=== PATIENT | female | born 1980 | race Caucasian/White ===

== ENCOUNTER → 2018-04-11 10:21 | Outpatient (CLI) | payer OTHER, SELFPAY ==
--- NOTE | 2018-04-11 10:25 | RAD_ITS ---
STUDY: X-RAY - RIGHT FOOT CLINICAL: Female, 38 years old. Posterior foot pain following injury. TECHNIQUE: 3 view(s) of the foot. COMPARISON: None. FINDINGS: Normal talus, calcaneus, and tarsal bones. Normal visualized subtalar, talonavicular, calcaneocuboid, tarsal and tarsometatarsal articulations. Normal metatarsi. Normal metatarsophalangeal joint of the great toe. Normal tibial and fibular sesamoid bones. Normal interphalangeal joint of the great toe. Normal phalanges of the great toe. Normal second through fifth metatarsophalangeal joints. Normal interphalangeal joints and phalanges of the lesser toes. The soft tissue structures are unremarkable. RAD/Foot min 3 Views IMPRESSION: Normal x-ray examination of the foot. Electronically Signed: Ralph Baez MD at 11:07 EDT Tel [phone], Service support ,
== END ==
PROVIDERS: Family Provider Internal Medicine; PCP Internal Medicine; Visit Provider Internal Medicine
DX: M79.671 Pain in right foot (principal)
CPT/HCPCS: 73630

== ENCOUNTER → 2018-07-14 09:12 | Outpatient (CLI) | payer OTHER, SELFPAY ==
--- NOTE | 2018-07-14 09:19 | US_ITS ---
STUDY: ABDOMINAL ULTRASOUND - RIGHT UPPER QUADRANT REASON FOR VISIT: Female, 38 years old. Pain TECHNIQUE: Ultrasound evaluation of the right upper quadrant was performed with real-time and static seo-scale imaging. # of Images: 125 TECHNICAL QUALITY: Adequate. COMPARISON: November 03, 2011 FINDINGS: Liver: The liver measures 15.5 cm. There is normal echogenicity of the liver. The bile ducts are dilated. There is hepatic color flow. The direction of portal flow is hepatopetal. There is no demonstrated mass lesion. Gallbladder: Normal distended gallbladder. The gallbladder wall measures 2 mm. There is a negative sonographic Del Cid's sign. There is no pericholecystic fluid. A nonshadowing polyp is present in the gallbladder measuring 5 x 4 x 4 mm. No shadowing gallstones are seen. Common Bile Duct (C.B.D.): The common bile duct measures 6 mm. Pancreas: Normal size of the head, body and tail of the pancreas. There is normal echogenicity of the pancreas. There is no demonstrated pancreatic mass or cyst. Right Kidney: Normal size of the right kidney. The right kidney measures 11.3 x 4.5 x 4.2 cm. Normal renal cortex. The right cortex measures 1.2 cm. There is no demonstrated renal mass or cyst. There is no right hydronephrosis. US/Abdomen Limited IMPRESSION: Small nonshadowing gallbladder polyp. No shadowing gallstones are seen. No gallbladder wall thickening. Dilated common bile duct. Electronically Signed: Cleveland Harvey MD at 7:16 EDT Tel , Service support ,
== END ==
PROVIDERS: Family Provider Internal Medicine; PCP Internal Medicine; Referring Provider Internal Medicine; Visit Provider Internal Medicine
DX: R07.89 Other chest pain (principal)
CPT/HCPCS: 76705

== ENCOUNTER 2019-08-07 11:08 | Emergency (ER) | payer OTHER, SELFPAY ==
[2019-08-07 11:09] VITALS: BP 143/101; PULSE 110; RESP 16; TEMP 36.8; O2SAT 99; BMI 24.7
--- NOTE | 2019-08-07 11:34 | EKG12_ITS ---
Test Reason : BACK Blood Pressure : / mmHG Vent. Rate : 093 BPM Atrial Rate : 093 BPM P-R Int : 156 ms QRS Dur : 076 ms QT Int : 340 ms P-R-T Axes : 000 059 015 degrees QTc Int : 422 ms Ectopic atrial rhythm Normal ECG Confirmed by TYLOR KUHN, YESSY ([id number]), makeup editor AMBROCIO KEY ([id number]) on 08/13/2019 1:06:22 PM Referred By: SARAH Confirmed By:KARLY SNIDER MD
--- NOTE | 2019-08-07 11:34 | CT_ITS ---
STUDY: CT ABDOMEN AND PELVIS WITH CONTRAST REASON FOR EXAM: Female, 39 years old. Left flank pain. RADIATION DOSAGE (If Supplied By Facility): CTDIvol = ( 10.14 ) mGy, DLP = ( 953.63 ) mGycm TECHNIQUE: Transaxial images were obtained from the dome of the diaphragm to the symphysis pubis without oral contrast. IV Isovue 370 75 was administered. Sagittal and coronal images were reconstructed. Individualized dose optimization techniques were used for this CT. COMPARISON: None. FINDINGS: Calcified granuloma in the right lower lobe. The visualized portions of the heart are within normal limits. Normal liver. Minimal degree of the central intrahepatic biliary ductal dilatation. Minimally dilated proximal portion of the common bile duct. Questionable densities within the common bile duct. There are multiple benign calcified granulomata of the spleen. Normal pancreas. Normal bilateral adrenal glands. Normal right kidney. Normal left kidney. There is a small hiatal hernia. Normal small intestine. There are scattered colonic diverticula consistent with diverticulosis. The appendix is visualized and appears normal. Normal abdominal aorta. Normal inferior vena cava. Normal retroperitoneum. Normal urinary bladder. Dominant follicle in the right ovary. Normal abdominal wall. Normal osseous structures. CT/Abdomen/Pelvis W IV Cont ONLY IMPRESSION: Minimal degree of central intrahepatic biliary ductal dilatation. Questionable densities within the common bile duct. Correlation with ultrasound of the gallbladder is recommended. Electronically Signed: Ralph Baez, at 13:19 EST , Service support ,
--- NOTE | 2019-08-07 11:34 | CT_ITS ---
STUDY: CTA CHEST REASON FOR EXAM: Female, 39 years old. Left-sided pleuritic chest pain. RADIATION DOSAGE (If Supplied By Facility): CTDIvol = ( 10.14 ) mGy, DLP = ( 953.63 ) mGycm TECHNIQUE: The examination was performed with the intravenous administration of IV Isovue 370 75. Post-processing of the angiographic images was performed, with multiplanar reformation and 3D reconstruction. Individualized dose optimization techniques were used for this CT. COMPARISON: None. FINDINGS: Normal enhancement of the main pulmonary artery and right and left pulmonary arteries. Normal enhancement of the bilateral peripheral pulmonary arteries. There is no demonstrated pulmonary embolism. Normal thoracic aorta and visualized great vessels. There is no demonstrated aortic dissection. Normal heart and pericardium. Normal mediastinum. Normal hilar regions. Normal visualized trachea and bronchi. The lungs are well expanded. Calcified granuloma in the right lower lobe. Normal pleura. Normal chest wall structures. Normal osseous structures. Calcified splenic granulomas. CT/CTA Chest W/WO Contrast IMPRESSION: No evidence of pleural embolism. Calcified granuloma in the right lower lobe. Electronically Signed: Ralph Baez, at 13:20 EST , Service support ,
--- NOTE | 2019-08-07 11:36 | ED.DCSUM_ITS ---
History of Present Illness Chief Complaint: Back Informant: Patient Onset: Hours - 1 Context: Sudden Onset - while sitting at her desk Timing: Continuous - not colicky Quality: pain Location: left mid-back Current Severity: Severe Maximum Severity: Severe Worsened by: certain movements. deep inspiration. Relieved by: remaining still, breathing easy. no help from ibuprofen. Associated Symptoms: nausea at onset, gone. a little sob. no cp, abd pain, recent injury. Narrative: Sudden onset of pain she has never had before. It is in her mid left back, it does not radiate. She had a D&C in the past but no other surgeries. Pain does not radiate anteriorly or into the groin, no urinary symptoms or problems with bowel movements lately, no recent illnesses or injuries. She states that she has no chest pain, but then states that my chest is starting to feel tight because I am feeling anxious. No recent leg pain or swelling. No history of DVT or PE. No recent long travel, hospitalization, surgery, or other reasons to be immobilized. - Past Medical History (1) Depression Status: Chronic Past Medical History - Allergies and Home Meds Allergies/Adverse Reactions: Allergies No Known Allergies Allergy (Verified 08/07/19 11:08) Primary Care Physician: Breanne Centeno DO [Primary Care Provider] - Surgical History: noncontributory - D&C only Smoking Status: Never smoker Drugs: None Review of Systems General: Denies: Chills, Fever, Sweats Eyes: Denies: Visual changes - bilaterally, Diplopia ENT: Denies: Rhinorrhea, Sore throat Cardiovascular: Reports: Chest pain - see hpi. Denies: Palpitations Respiratory: Reports: Dyspnea - a little. Denies: Cough, Dyspnea on exertion, Orthopnea Gastrointestinal: Denies: Abdominal pain, Nausea, Vomiting, Diarrhea, Melena, Hematochezia Genitourinary: Denies: Dysuria, Hematuria, Frequency Musculoskeletal: Reports: Back pain. Denies: Neck pain, Swelling, Extremity Pain Skin: Denies: Rash, Wounds Neurological: Denies: Headache, Weakness, Numbness Physical Exam Vital Signs/Narrative: Vital Signs Temp Pulse Resp BP Pulse Ox 08/07/19 11:09 98.3 F 110 H 16 143/101 H 99 Inital Vital Signs reviewed: Yes General: Well nourished, Well developed, No Acute Distress - but uncomfortable Head: Normocephalic, Atraumatic Eyes: Perrl, EOMI ENT: Moist mucous membranes, No rhinorrhea Neck: Supple, Nontender Cardiovascular: Regular rate, Regular rhythm, No murmurs, Tachycardia Respiratory: No distress, CTA bilaterally, Chest nontender Abdomen: Soft, Nontender, Nondistended, Normal bowel sounds Back: Nontender, Normal Inspection. Negative for: CVA tenderness, Spinal tenderness Extremities: Nontender, No edema. Negative for: Calf Tenderness Skin: Normal color, No rash, No Trauma Neurological: Alert, Oriented x3, Cranial nerves II-XII grossly intact, Normal Strength, Normal Sensation Psychological: Normal affect, Normal Mood, - - anxious Diagnostic/Tx/Re-eval Impressions Abdomen/Pelvis CT 08/07/19 11:34 IMPRESSION: Minimal degree of central intrahepatic biliary ductal dilatation. Questionable densities within the common bile duct. Correlation with ultrasound of the gallbladder is recommended. Electronically Signed: Ralph Nestor, at 13:19 EST , Service support , Chest CTA 08/07/19 11:34 IMPRESSION: No evidence of pleural embolism. Calcified granuloma in the right lower lobe. Electronically Signed: Ralph Nestor, at 13:20 EST , Service support , 08/07/19 11:34 CT Abd [Abdomen/Pelvis W IV Cont ONLY] [CT] Stat CTA Chest W/WO Contrast [CT] Stat Laboratory Results 08/07/19 08/07/19 08/07/19 12:05 12:10 12:10 WBC 7.2 RBC 5.35 Hgb 14.5 Hct 45.4 MCV 84.9 MCH 27.1 MCHC 31.9 L RDW Std Deviation 37.4 RDW Coeff of [place] 12.2 Plt Count 268 MPV 9.1 Immature Gran % (Auto) 0.100 Neut % (Auto) 61.7 Lymph % (Auto) 29.7 [place] % (Auto) 7.1 Eos % (Auto) 0.7 Baso % (Auto) 0.7 Absolute Neuts (auto) 4.4 Absolute Lymphs (auto) 2.12 Nucleated RBC % 0 Sodium 140 Potassium 3.6 Chloride 105 Carbon Dioxide 26.0 Anion Gap 9 BUN 11 Creatinine 0.72 Estim Creat Clear Calc 85.92 Est GFR (MDRD) Af Amer 116 Est GFR (MDRD) Non-Af 96 BUN/Creatinine Ratio 15.4 Glucose 90 Calcium 9.4 Total Bilirubin Direct Bilirubin AST ALT Alkaline Phosphatase Troponin I < 0.015 Total Protein Albumin Globulin Urine Color Straw Urine Clarity Clear Urine pH 6.5 Ur Specific [place] 1.010 Urine Protein Negative Urine Glucose (UA) Normal Urine Ketones 5 H Urine Occult Blood Negative Urine Nitrite Negative Urine Bilirubin Negative Urine Urobilinogen Normal Ur Leukocyte Esterase Negative Urine RBC 0 SEEN Urine WBC 0 SEEN Ur Squamous Epith Cells 0-5 SEEN Urine Bacteria 0 SEEN Urine Mucus 0 SEEN 08/07/19 12:10 WBC RBC Hgb Hct MCV MCH MCHC RDW Std Deviation RDW Coeff of [place] Plt Count MPV Immature Gran % (Auto) Neut % (Auto) Lymph % (Auto) Valencia % (Auto) Eos % (Auto) Baso % (Auto) Absolute Neuts (auto) Absolute Lymphs (auto) Nucleated RBC % Sodium Potassium Chloride Carbon Dioxide Anion Gap BUN Creatinine Estim Creat Clear Calc Est GFR (MDRD) Af Amer Est GFR (MDRD) Non-Af BUN/Creatinine Ratio Glucose Calcium Total Bilirubin 1.10 H Direct Bilirubin 0.27 AST 19 ALT 23 Alkaline Phosphatase 82 Troponin I Total Protein 8.5 H Albumin 4.5 Globulin 4.0 Urine Color Urine Clarity Urine pH Ur Specific [place] Urine Protein Urine Glucose (UA) Urine Ketones Urine Occult Blood Urine Nitrite Urine Bilirubin Urine Urobilinogen Ur Leukocyte Esterase Urine RBC Urine WBC Ur Squamous Epith Cells Urine Bacteria Urine Mucus - Rhythm Strip Rhythm Strip: Sinus Rhythm Rate: 93 Ectopy: None - EKG Initial EKG Interpretation: Sinus Rhythm, No Acute Injury Pattern, - - [place] normal. Normal EKG. - Medical Decision Making CT angiography of the chest shows nothing acute including pulmonary embolus. CT of the abdomen and pelvis shows nothing that explains this discomfort although some nonspecific common bile duct findings are noted as above. Patient had no abdominal discomfort, vomiting, or tenderness. Therefore I suspect this is chronic and not new. I added liver enzymes, her total bilirubin is just slightly elevated at 1.1. The only other reading that we have in the system is 0.9 and that was 2-3 years ago. The patient is feeling a lot better after Zofran and morphine with IV fluids. The rest of her blood work is all completely normal. Urinalysis is normal. No kidney stone was seen. I discussed with her doctor, Dr. Centeno, who reviewed some records and states she had a total bilirubin of 0.7 and one other reading other than the ones that we discussed, but she did have an ultrasound last year that showed a dilated common bile duct. Therefore I do not think there is anything acute going on here. Since this is a very slight abnormality I feel she can safely follow-up since she is feeling much better. She will be given a prescription for analgesics and advised to follow-up or return if worse. She is comfortable with that plan. Etiology is unknown and she did not act like this was something musculoskeletal. ED Disposition - Plan for ED Patient: Disposition: Home or Assisted Living Diagnosis: Hyperbilirubinemia, Common bile duct dilatation, Left-sided back pain Instructions: BACK PAIN (Acute or Chronic) Prescriptions: Hydrocodone Bitart/Apap 5-325 [[place] 5MG-325MG] 1 tab PO Q4H PRN PRN 2 Days #10 tab PRN Reason: Pain Prescription Printed Referrals: Breanne Centeno, [Primary Care Provider] - 3-5 Days if not improving
--- NOTE | 2019-08-07 11:38 | NURSING ---
NO OLD EKGS
[2019-08-07] MEDS: 0.9% Normal Saline 1,000 ML 999 ML IV (12:09)
[2019-08-07] MEDS: Ondansetron 4 MG/2 ML Vial IV (12:10)
[2019-08-07] MEDS: Morphine 4 MG/ML Syringe IV (12:11)
[2019-08-07 12:15] LABS: Bacteria 0 SEEN /hpf (None Seen); Mucous, Urine 0 SEEN /hpf (<or=2+); Red Blood Cells-Urine 0 SEEN /hpf (0-5); White Blood Cells 0 SEEN /hpf (0-5)
[2019-08-07 12:18] LABS: Color, Urine Straw (Yellow); Glucose, Dipstick Normal (Normal); Ketone-Dipstick 5 mg/dl (Negative); Leukocyte Esterase-Dipstick Negative /ul (Negative); Nitrite-Dipstick Negative (Negative); Occult Blood-Urine Negative /ul (Negative); Protein-Dipstick Negative (Negative); Urine Bilirubin Dipstick Negative (Negative); Urine Clarity Clear (Clear); Urine Urobilinogen Normal (Normal); Urine pH 6.5 (5.0 - 8.0)
[2019-08-07 12:18] LABS: Absolute Lymphocyte Count 2.12 X10^3/uL (0.83-4.51); Absolute Neutrophil Count 4.4 X10^3/uL (2.0-7.7); Basophil# 0.05 X10^3/uL; Basophil% 0.7 % (0-1); Eosinophil# 0.05 X10^3/uL; Eosinophils% 0.7 % (0-5); Hematocrit 45.4 % (37-47); Hemoglobin 14.5 g/dL (12.0-15.0); Lymphocyte # 2.12 X10^3/ul (4.0); Lymphocyte % 29.7 % (19-41); Mean Corp Hgb Conc 31.9 g/dL (32-36); Mean Corpuscular Hgb 27.1 pg (27.0-32.0); Mean Corpuscular Volume 84.9 fL (81-99); Mean Platelet Vol. 9.1 fl (6.2-12.0); Monocyte# 0.51 X10^3/uL; Monocyte% 7.1 % (0-10); NRBC Flagged by Analyzer 0 % (0-5); Neutrophil # 4.41 X10^3/uL (2.7-7.7); Neutrophil % 61.7 % (47-70); Platelet Count 268 K/mm3 (150-450); RBC Distribution Width CV 12.2 % (11.6-14.6); RBC Distribution Width SD 37.4 fl (35.1-43.9); Red Blood Count 5.35 M/mm3 (4.2-5.4); White Blood Count 7.2 K/mm3 (4.4-11.0)
[2019-08-07 12:30] LABS: Squamous Epithelial Cells - UA 0-5 SEEN /hpf (5-10)
[2019-08-07 12:35] LABS: Anion Gap 9 (5-15); BUN 11 mg/dL (7-18); BUN/Creat Ratio 15.4 RATIO (10-20); Calcium,Total 9.4 mg/dL (8.5-10.1); Chloride 105 mmol/L (98-107); Creatinine, Serum 0.72 mg/dL (0.55-1.02); EST Glomerular Filtration Rate 96 mL/min (>60); Est Glom Filt Rate - Afr Amer 116 mL/min (>60); Estimated Creatinine Clearance 85.92 ml/min; Glucose 90 mg/dL (74-106); Potassium 3.6 mmol/L (3.5-5.1); Sodium Level 140 mmol/L (136-145)
[2019-08-07 13:08] VITALS: BP 122/95; PULSE 81; RESP 16; TEMP 36.7; O2SAT 98
[2019-08-07 14:15] LABS: AST(SGOT) 19 U/L (15-37); Alanine Aminotransfer ALT/SGPT 23 U/L (13-56); Albumin, Serum 4.5 g/dL (3.2-5.0); Alkaline Phosphatase 82 U/L (45-117); Bilirubin, Direct 0.27 mg/dL (0.00-0.30); Protein, Total 8.5 g/dL (6.4-8.2)
[2019-08-07 15:00] VITALS: RESP 16
== END 2019-08-07 15:28 | disposition home or self-care (01) ==
PROVIDERS: Emergency Provider Emergency Medicine; Family Provider Internal Medicine; PCP Internal Medicine
DX: K83.8 Other specified diseases of biliary tract (principal); R17 Unspecified jaundice; M54.9 Dorsalgia, unspecified; F32.9 Major depressive disorder, single episode, unspecified; Z79.899 Other long term (current) drug therapy
CPT/HCPCS: 71275; 74177; 80048; 80076; 81001; 84484; 85025; 93005; 96361; 96374; 96375; 99285; J7030; Q9967; A4216; J2405

== ENCOUNTER → 2020-07-24 07:59 | Outpatient (CLI) | payer OTHER, SELFPAY ==
--- NOTE | 2020-07-24 08:02 | US_ITS ---
STUDY: ABDOMINAL ULTRASOUND - RIGHT UPPER QUADRANT REASON FOR VISIT: Female, 40 years old PAIN EPIGASTRIC AND BLOATING TECHNIQUE: Ultrasound evaluation of the right upper quadrant was performed with real-time and static seo-scale imaging. TECHNICAL QUALITY: Adequate. COMPARISON: None. FINDINGS: Liver: The liver measures 13.8 cm. There is normal echogenicity of the liver. The bile ducts are within normal limits. There is hepatic color flow. The direction of portal flow is hepatopetal. There is no demonstrated mass lesion. Gallbladder: Normal distended gallbladder. The gallbladder wall measures 3.0 mm. There is a negative sonographic Del Cid''s sign. There is no pericholecystic fluid. There are no gallstones. Common Bile Duct (C.B.D.): The common bile duct measures 3.0 mm. Pancreas: Normal size of the head, body and tail of the pancreas. There is normal echogenicity of the pancreas. There is no demonstrated pancreatic mass or cyst. Right Kidney: Normal size of the right kidney. The right kidney measures 10.2 cm x 4.5 cm x 4.4 cm. Normal renal cortex. The right cortex measures 1.5 cm. There is no demonstrated renal mass or cyst. There is no right hydronephrosis. US/Abdomen Limited IMPRESSION: Normal right upper quadrant ultrasound examination. Electronically Signed: Ralph Baez, at 10:31 EDT , Service support ,
--- NOTE | 2020-07-24 08:02 | NM_ITS ---
CLINICAL: 40-year-old female with reported history of abdominal bloating. SEMI-SOLID PHASE 99m Tc SULFUR COLLOID GASTRIC EMPTYING STUDY COMPARISON: Abdominal ultrasound report 07/24/2020 FINDINGS: The patient was administered 1.1 mCi of 99m Tc sulfur colloid mixed with oatmeal and consumed per os. Image acquisitions in the anterior-posterior projections for a total of 60 minutes. There is prompt visualization of the stomach. There is no gastroesophageal reflux identified. The T ? linear fit was calculated to be 45.42 minutes, (Normal: 12-56 minutes). NM/Gastric Emptying Study IMPRESSION: 1. NORMAL 99m Tc sulfur colloid semi-solid phase (oatmeal) gastric emptying imaging examination. A. There is normal and preserved semi-solid phase gastric emptying compared to normal controls with maintained first order kinetics throughout all components of the examination. (Elaine et al, J Nucl Med Tech 38: 186, 2010). Electronically Signed: Roberto Mayers DO at 20:50 EDT Tel , Service support ,
== END ==
PROVIDERS: PCP Internal Medicine; Referring Provider Internal Medicine; Visit Provider Internal Medicine
DX: R14.0 Abdominal distension (gaseous) (principal); R10.30 Lower abdominal pain, unspecified
CPT/HCPCS: 76705; 78264; A9541

== ENCOUNTER 2021-11-05 11:19 | Outpatient (CLI) | payer OTHER, SELFPAY ==
[2021-11-05 12:21] LABS: NATERA MAILED SPECIMEN
[2021-11-11 17:40] LABS: HPV APTIMA, High Risk Negative (Negative)
== END 2021-11-05 23:59 | disposition home or self-care (01) ==
PROVIDERS: PCP Internal Medicine; Referring Provider Obstetrics & Gynecology; Visit Provider Obstetrics & Gynecology
DX: Z12.4 Encounter for screening for malignant neoplasm of cervix (principal)
CPT/HCPCS: 36415; 87624; 88175; G0145

== ENCOUNTER 2021-11-11 08:50 | Outpatient (CLI) | payer OTHER, SELFPAY ==
--- NOTE | 2021-11-11 09:05 | BI_ITS ---
MAMMOGRAPHY - BILATERAL SCREENING REASON FOR EXAM: Female, 41 years old. Routine annual screening examination. PERTINENT HISTORY: Mother with breast cancer. TECHNIQUE: Digital bilateral breast cha (3D mammographic acquisition) in the CC and MLO projections. 2-D mediolateral oblique (MLO) and craniocaudad (CC) views of both breasts were obtained. CAD: Full Field Digital Mammography with Computer Added Detection was performed. COMPARISON: Comparison is made with prior study dated 04/28/2017. FINDINGS: Breast Composition: The breasts are heterogeneously dense, which may obscure small masses. There are no dominant masses or suspicious calcifications. Stable benign-appearing bilateral axillary lymph nodes. No other significant abnormalities are identified. There has been no significant change since the prior study. BI/SCRN MAMM (CAD)W/CHA BILAT IMPRESSION: Stable bilateral screening mammogram. Yearly follow-up mammogram recommended. (A) ASSESSMENT CATEGORY: BIRADS Category 2: Benign. A letter regarding these results will be sent to the patient by the facility within 30 days. Approximately 10% of breast cancers are not detected by mammography. A normal mammogram should not delay biopsy of a clinically suspicious abnormality. [id number] Electronically Signed: Ralph Baez MD at 9:57 EST ,
== END 2021-11-11 23:59 | disposition home or self-care (01) ==
PROVIDERS: PCP Internal Medicine; Referring Provider Obstetrics & Gynecology; Visit Provider Obstetrics & Gynecology
DX: Z12.31 Encounter for screening mammogram for malignant neoplasm of breast (principal)
CPT/HCPCS: 77063; 77067

== ENCOUNTER 2021-12-16 08:55 | Outpatient (CLI) | payer OTHER, SELFPAY ==
--- NOTE | 2021-12-16 08:59 | US_ITS ---
STUDY: ULTRASOUND OF THE FEMALE PELVIS - COMPLETE REASON FOR EXAM: Female, 41 years old. Pelvic pain LMP: Unknown. TECHNIQUE: Transabdominal and Transvaginal TECHNICAL QUALITY: Adequate. COMPARISON: None. FINDINGS: The uterus is retroverted and is in a midline position. The uterus measures 6.8 cm x 4.9 cm x 4.2 cm. There is a Nabothian cyst of the cervix. The endometrium measures 3.1 mm in thickness, and is hyperechoic. There is no demonstrated endometrial mass. There is a 2.3 cm x 2 cm x 1.6 cm uterine fibroid. I.U.D. - The patient does not have an I.U.D. The right ovary is visualized. The right ovary measures 3 cm x 2 cm x 1.7 cm. A dominant follicle is seen in the right ovary measuring 1.7 cm x 1.5 cm x 1.5 cm. There is no visualized right adnexal mass or complex lesion. There is normal arterial and normal venous vascularity. The left ovary is visualized. The left ovary measures 2.6 cm x 1.6 cm x 1.5 cm. There is no left ovarian cyst or ovarian mass. There is no visualized left adnexal mass or complex lesion. There is normal arterial and normal venous vascularity. There is no fluid in the cul-de-sac. The pre void volume of the bladder was 262 ml. Polycystic ovary disease: No. US/Transvaginal Non- IMPRESSION: 2.3 cm x 2 cm x 1.6, uterine fibroid. Dominant follicle in the right ovary measuring 1.7 cm x 1.5 cm x 1.5 cm. Electronically Signed: Ralph Baez MD at 15:12 EDT ,
--- NOTE | 2021-12-16 08:59 | US_ITS ---
STUDY: ULTRASOUND OF THE FEMALE PELVIS - COMPLETE REASON FOR EXAM: Female, 41 years old. Pelvic pain LMP: Unknown. TECHNIQUE: Transabdominal and Transvaginal TECHNICAL QUALITY: Adequate. COMPARISON: None. FINDINGS: The uterus is retroverted and is in a midline position. The uterus measures 6.8 cm x 4.9 cm x 4.2 cm. There is a Nabothian cyst of the cervix. The endometrium measures 3.1 mm in thickness, and is hyperechoic. There is no demonstrated endometrial mass. There is a 2.3 cm x 2 cm x 1.6 cm uterine fibroid. I.U.D. - The patient does not have an I.U.D. The right ovary is visualized. The right ovary measures 3 cm x 2 cm x 1.7 cm. A dominant follicle is seen in the right ovary measuring 1.7 cm x 1.5 cm x 1.5 cm. There is no visualized right adnexal mass or complex lesion. There is normal arterial and normal venous vascularity. The left ovary is visualized. The left ovary measures 2.6 cm x 1.6 cm x 1.5 cm. There is no left ovarian cyst or ovarian mass. There is no visualized left adnexal mass or complex lesion. There is normal arterial and normal venous vascularity. There is no fluid in the cul-de-sac. The pre void volume of the bladder was 262 ml. Polycystic ovary disease: No. US/Pelvic (Non ) IMPRESSION: 2.3 cm x 2 cm x 1.6, uterine fibroid. Dominant follicle in the right ovary measuring 1.7 cm x 1.5 cm x 1.5 cm. Electronically Signed: Ralph Baez MD at 15:12 EDT ,
[2021-12-16 11:14] LABS: Estradiol 97.3 pg/mL; Follicle Stimulating Hormone 3.3 mIU/mL; Thyroid Stim Hormone (TSH) 0.73 uIU/mL (0.358-3.74)
[2021-12-19 11:07] LABS: Testosterone, Free 0.59 ng/dL (0.10-0.85); Testosterone, Total 21 ng/dL (4-50)
== END 2021-12-16 23:59 | disposition home or self-care (01) ==
PROVIDERS: PCP Internal Medicine; Referring Provider Obstetrics & Gynecology; Visit Provider Obstetrics & Gynecology
DX: N95.9 Unspecified menopausal and perimenopausal disorder (principal); R10.2 Pelvic and perineal pain
CPT/HCPCS: 36415; 76830; 76856; 82670; 83001; 83002; 84402; 84403; 84443; 93976

== ENCOUNTER → 2022-04-08 | Outpatient (CLI) | payer OTHER, SELFPAY | END | disposition home or self-care (01) | LOC: LABSPEC 16:44 | PROVIDERS: PCP Internal Medicine; Visit Provider Obstetrics & Gynecology | DX: R30.9 Painful micturition, unspecified (principal) | CPT/HCPCS: 87086; 87088 ==

== ENCOUNTER → 2022-11-01 | Outpatient (CLI) | payer OTHER, SELFPAY ==
--- NOTE | 2022-11-01 14:36 | CT_ITS ---
INDICATION: LLQ PAIN, left flank pain EXAMINATION: CT ABDOMEN AND PELVIS WITH CONTRAST - CT Abdomen And Pelvis W/ Contrast Injection TECHNIQUE: Helically acquired images were obtained of the abdomen and pelvis following IV contrast. A radiation dose optimization technique was used for this scan. IV Contrast dosage and agent: 79 cc Isovue-300 Oral contrast: Gastrografin COMPARISON: None. FINDINGS: LOWER CHEST: Lung bases are clear. No cardiomegaly or pericardial effusion. LIVER: Homogeneous. No focal mass. GALLBLADDER AND BILIARY TREE: No calcified gallstones. No gallbladder distension or wall edema. No intra- or extrahepatic biliary ductal dilation. PANCREAS: No focal cystic or solid mass. SPLEEN: Normal size without focal cystic or solid mass. ADRENAL GLANDS: No nodules. KIDNEYS AND URETERS: Normal renal size and position. No hydronephrosis. PERITONEUM: No ascites or free air. No other fluid collection. BOWEL: No evidence of acute appendicitis. No stomach or bowel distension. Enteric contrast reaches the cecum. No focal inflammatory change. LYMPH NODES: No enlarged mesenteric or retroperitoneal lymph nodes. VESSELS: Aorta is non-dilated. URINARY BLADDER: Unremarkable. REPRODUCTIVE ORGANS: No pelvic masses. ABDOMINAL WALL: No discrete abdominal or pelvic wall hernia. BONES: No lytic or blastic abnormality. CT/Abdomen/Pelvis WITH Contrast IMPRESSION: Negative CT of the abdomen and pelvis with contrast. No finding to explain left lower quadrant left leg pain. Electronically Signed: Arias Canchola MD at 17:24 EST ,
--- NOTE | 2022-11-01 14:42 | RAD_ITS ---
INDICATION: LOW BACK PAIN EXAMINATION/TECHNIQUE: X-RAY - XR Spine Lumbar 2 or 3 Views COMPARISON: None. FINDINGS: VERTEBRAE: Preserved vertebral body height. No fracture. No spondylolisthesis. Preservation of the normal lumbar lordosis. Mild multilevel facet arthropathy. DISCS: Mild multilevel degenerative disc disease and spondylosis. INCLUDED ABDOMEN: Included bowel gas pattern is non-obstructive. RAD/Lumbar Spine 2 or 3 Views IMPRESSION: No evidence of lumbar spinal fracture or spondylolisthesis. Mild multilevel degenerative disc disease and spondylosis. Electronically Signed: Khanh Reno MD at 18:21 EST ,
== END | disposition home or self-care (01) ==
LOC: CT 14:34
PROVIDERS: PCP Internal Medicine; Referring Provider Nurse Practitioner Family; Visit Provider Nurse Practitioner Family
DX: R10.32 Left lower quadrant pain (principal); M54.50 Low back pain, unspecified
CPT/HCPCS: 72100; 74177; Q9967

== ENCOUNTER → 2022-11-18 | Outpatient (CLI) | payer OTHER, SELFPAY ==
--- NOTE | 2022-11-18 11:46 | BI_ITS ---
MAMMOGRAPHY - BILATERAL SCREENING REASON FOR EXAM: Female, 42 years old. Routine annual screening examination. PERTINENT HISTORY: Mother with breast cancer. TECHNIQUE: Digital bilateral breast cha (3D mammographic acquisition) in the CC and MLO projections. 2-D mediolateral oblique (MLO) and craniocaudad (CC) views of both breasts were obtained. CAD: Full Field Digital Mammography with Computer Added Detection was performed. COMPARISON: Comparison is made with prior study dated 11/11/2021 and 04/28/2017. FINDINGS: Breast Composition: The breasts are heterogeneously dense, which may obscure small masses. There are no dominant masses or suspicious calcifications. Stable benign-appearing bilateral axillary lymph nodes. No other significant abnormalities are identified. There has been no significant change since the prior study. BI/SCRN MAMM (CAD)W/CHA BILAT IMPRESSION: Stable bilateral screening mammogram. Yearly follow-up mammogram recommended. (A) ASSESSMENT CATEGORY: BIRADS Category 2: Benign. A letter regarding these results will be sent to the patient by the facility within 30 days. Approximately 10% of breast cancers are not detected by mammography. A normal mammogram should not delay biopsy of a clinically suspicious abnormality. [id number] Electronically Signed: Ralph Baez MD at 12:40 EST ,
== END | disposition home or self-care (01) ==
PROVIDERS: PCP Internal Medicine; Referring Provider Obstetrics & Gynecology; Visit Provider Obstetrics & Gynecology
DX: Z12.31 Encounter for screening mammogram for malignant neoplasm of breast (principal)
CPT/HCPCS: 77063; 77067

== ENCOUNTER 2022-11-22 05:26 | Day surgery (SDC) | payer OTHER, SELFPAY ==
--- NOTE | 2022-11-08 10:00 | NURSING ---
PT EDUCATED ON REMOVING ALL JEWELRY DAY OF OR. PT REPORTED DR. VELAZCO HAS TOLD PT SHE CAN LEAVE ALL JEWELRY ON AND TAPE IT AND SIGN FORM.
[2022-11-09 16:18] LABS: Hematocrit 42.6 % (37-47); Hemoglobin 13.4 g/dL (12.0-15.0); Mean Corp Hgb Conc 31.5 g/dL (32-36); Mean Corpuscular Volume 85.9 fL (81-99); Mean Platelet Vol. 9.5 fl (6.2-12.0); Platelet Count 317 K/mm3 (150-450); RBC Distribution Width CV 13.1 % (11.6-14.6); RBC Distribution Width SD 40.8 fl (35.1-43.9); Red Blood Count 4.96 M/mm3 (4.2-5.4); White Blood Count 11.6 K/mm3 (4.4-11.0)
[2022-11-09 17:11] LABS: Magnesium 2.1 mg/dL (1.6-2.6)
[2022-11-22] VITALS (11 sets, daily range): BP systolic 106–134; BP diastolic 65–95; PULSE 94–119; RESP 14–16; TEMP 36.3–37.1; O2SAT 95–100; BMI 31.4
--- NOTE | 2022-11-22 | HYST_PTH ---
PATIENT: TATUM ARELLANO LOC: [facility] [place] U#:[id number] AGE/SX: 42/F ROOM: RE11/22/[address]: Dr. Paige Maki DO : 1980 BED: DIS: 11/22/2022 SPEC #: [id number] RECD: 11/22/22 13:34 STATUS: NAKITA CAMPOSAngela #: [id number] SRUTHI: 11/22/22 00:[address]: Paige Maki DEPT: SURGICAL PATHOLOGY RECD BY: Dirk Anderson ENTERED: 11/22/22 13:34 SP TYPE: HYSTERECT OTHR DR: Dr. Breanne Centeno DO Tissues: Uterus, NOS Procedures: Surgery Specimen Level V HEADER OPERATION: ERAS, hysterectomy, LAVH, cysto, bilateral salpingectomy PRE-OP DIAGNOSIS: Pelvic pain, fibroid uterus TISSUE SUBMITTED: Uterus, cervix, bilateral fallopian tubes MICROSCOPIC DIAGNOSIS Uterus, cervix, bilateral fallopian tubes, hysterectomy and bilateral salpingectomy: Cervix ? chronic inflammation and squamous metaplasia. Endometrium ? changes consistent with status post endometrial ablation. Myometrium ? intramural and subserosal leiomyomas (largest measuring 2.5 cm in greatest dimension). Bilateral fallopian tubes - no pathologic diagnosis. Left paratubal cyst. SJ:rg 11/23/2022 MICROSCOPIC DESCRIPTION Slides are reviewed. GROSS DESCRIPTION Received in fixative is one container labeled with the patient's name and designated uterus, cervix, bilateral fallopian tubes. The specimen consists of a hysterectomy specimen consisting of uterus with cervix, attached bilateral fallopian tubes and portion of detached fimbrial end of right fallopian tube. The uterus with cervix weighs 94 gm and measures 9.0 x 6.0 x 5.0 cm. The serosal surface is knott, glistening. The ectocervical mucosa is unremarkable. The external os is oval and patulous in contour. The endocervical canal measures 3.0 cm in length and the endocervical mucosa is knott, glistening and unremarkable. The triangular endometrial cavity measures 4.5 cm in length and 1.5 cm in width. The endometrium is knott, glistening without any mass lesion and measures 0.1 cm in thickness. Sections of the uterine wall reveal a knott, nodular mass measuring 2.5 cm in greatest dimension. Sections of this mass reveals knott whorled cut surfaces without areas of hemorrhage, necrosis or cystic degeneration. Sections of the uterine wall also reveal a few ill-defined nodular masses. The serosal surface also shows a small nodular mass measuring 0.3 cm in greatest dimension. The uterine wall measures up to 2.0 cm in thickness. Attached portion of right fallopian tube measures 4.8 cm in length and 0.6 cm in diameter. The detached fimbrial end measures 2.0 cm in length and 0.6 cm in diameter. Sections reveal unremarkable cut surfaces. The left fallopian tube measures 5.5 cm in length and 0.7 cm in diameter. The fimbrial end is identified. Sections reveal unremarkable cut surfaces. A paratubal cyst is also noted measuring 0.6 cm in greatest dimension. 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 / EMERSON:kimmy 11/22/2022 TC:1 CPT: 32132
[2022-11-22 06:09] LABS: Internal QC Validated? YES +Cl - CLEAR BKGD; Pregnancy, Urine Negative Negative
[2022-11-22] MEDS: Celecoxib 200 MG Capsule 400 MG PO (06:19)
[2022-11-22] MEDS: dexAMETHasone 10 MG/ML Vial 8 MG IV (06:19)
[2022-11-22] MEDS: Acetaminophen 500 MG Tablet 1000 MG PO (06:19)
[2022-11-22] MEDS: Phenazopyridine 95 MG Tablet 190 MG PO (06:19)
[2022-11-22] MEDS: Gabapentin 600 MG Tablet PO (06:19)
[2022-11-22] MEDS: Lactated Ringers 1,000 ML 40 ML IV ×2 (06:20→08:15)
[2022-11-22] MEDS: Magnesium 1 GM over 15 mins IV (06:20)
[2022-11-22 06:21] LABS: Bedside Glucose 107 mg/dL (74-106)
--- NOTE | 2022-11-22 07:26 | HP.PCM_ITS ---
History and Physical Date of Admission: 11/22/22 Intake Vital Signs ? 11/02/2310:30 11/02/2310:32 Height 5 ft 2 in 5 ft 2 in Weight: 171 lb 6 oz ? BMI 31.3 ? 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 Is patient in pain?: No Allergies No Known Allergies Allergy (Verified 11/02/22 11:31) Medications alprazolam 0.25 mg tablet 0.25 mg PO PRN PRN Anxiety 08/07/19 [History Confirmed 11/02/22] cetirizine 10 mg tablet (Zyrtec) 10 mg PO DAILY PRN 11/05/21 [History Confirmed 11/02/22] duloxetine 30 mg capsule,delayed release (Cymbalta) 30 mg PO DAILY 11/05/21 [History Confirmed 11/02/22] fluticasone propionate 50 mcg/actuation nasal spray,suspension (Flonase Allergy Relief) 1 spray intranasal BID 11/05/21 [History Confirmed 11/02/22] Post menopausal: No Patient : No : No [facility] Surgical History? S/P endometrial ablation Family History? Mother Breast cancerGrandmother DiabetesGrandfather Diabetes Social History? Smoking Status:? Never smoker alcohol intake:? current details:? occasionally substance use type:? does not use caffeine:? Yes what type of physical activity do you participate in:? none seatbelt use:? always do you feel safe at home:? Yes additional social history:? - Nathaniel Works at [employer] TV preop Details: TATUM ARELLANO is a 42 year old who presents for a pre-operative exam. She is scheduled initially for a TVH, however due to pelvic pain she is requesting that her ovaries be examined more thoroughly. She is now scheduled for an LAVH, bilateral salpingectomy, and cystoscopy. Her work friend was also diagnosed with ovarian cancer recently, her brother of cancer recently, and she has a family history of breast cancer. Her hereditary ca work up was negative however. Her last complaint is pressure and pain in her bladder. ultrasound shows the following:? (images sugget the fibroid is resting on the posterior aspect of her full bladder) INDINGS: The uterus is retroverted and is in a midline position.? The uterus measures 6.8 cm x 4.9 cm x 4.2 cm.? There is a Nabothian cyst of the cervix.? The endometrium measures 3.1 mm in thickness, and is hyperechoic. There is no demonstrated endometrial mass.? There is a 2.3 cm x 2 cm x 1.6 cm uterine fibroid. ? I.U.D. - The patient does not have an I.U.D. The right ovary is visualized.? The right ovary measures 3 cm x 2 cm x 1.7 cm.? A dominant follicle is seen in the right ovary measuring 1.7 cm x 1.5 cm x 1.5 cm.? There is no visualized right adnexal mass or complex lesion. There is normal arterial and normal venous vascularity. The left ovary is visualized.? The left ovary measures 2.6 cm x 1.6 cm x 1.5 cm.? There is no left ovarian cyst or ovarian mass.? There is no visualized left adnexal mass or complex lesion.? There is normal arterial and normal venous vascularity. There is no fluid in the cul-de-sac. The pre void volume of the bladder was 262 ml. Polycystic ovary disease:? No. US/Transvaginal Non- IMPRESSION: 2.3 cm x 2 cm x 1.6, uterine fibroid. Dominant follicle in the right ovary measuring 1.7 cm x 1.5 cm x 1.5 cm. ? History ? ? ? 5 ? Elective abortions ? Hx Para ? ? ? 3 ? Spontaneous abortions ? Hx # Term Pregnancies ? Ectopic pregnancies ? Hx # Pregnancies ? Multiple births ? # of living children ? Past Pregnancies Del. Date Name GA/Weeks Outcome Route Bth Weight [facility] Cooper ? Unknown Greg ? Unknown Kosta ? ROS Const ROS Unobtainable: All systems reviewed & are unremarkable except as noted in H Resp Resp: Reports system reviewed and no additional complaints, except as documented; Denies cough GI GI: Reports as per HPI Psych Psych: Reports system reviewed and no additional complaints, except as documented Exam Const General: cooperative, healthy appearing, comfortable and no acute distress Resp Effort & Inspection: normal respiratory effort Skin General: no rashes or lesions noted Psych Appearance: grossly normal Speech and Movement: speech and movement normal Coding Level of Care Code Off vis,est,level 4 Diagnoses Pelvic pain? R10.2 Fibroid uterus? D25.9 Assessment and Plan Assessment and Plan (1) Pelvic pain: ?Status:?Acute (2) Fibroid uterus: ?Status:?Acute Plan After discussing the patient's diagnosis and treatment plan options, patient wishes to proceed with surgical management. The plan is for an LAVH, bilateral salpingectomy, and cystoscopy.? I have discussed with the patient the risks, benefits, and alternatives of the procedure which include but are not limited to risks of anesthesia, bleeding, infection, possible damage to bowel, bladder, or surrounding vasculature which could lead to additional surgery to evaluate any complications.? Patient agrees to procedure and wishes to proceed.
[2022-11-22] MEDS: Cefazolin 2 GM in 0.9% Normal Saline 100 ML IV (07:28)
[2022-11-22] MEDS: Ondansetron 4 MG/2 ML Vial IV (07:30)
[2022-11-22] MEDS: Bupivacaine 0.25% 30 ML Vial (08:04)
--- NOTE | 2022-11-22 09:33 | PCM.OP.BLANK ---
Problems Associated Problem List Diagnoses (1) Pelvic pain: (2) Fibroid uterus: (3) Menorrhagia: Operative Report Date of Procedure: 11/22/22 preoperative diagnosis: menorrhagia, failed conservative treatment postoperative diagnosis: menorrhagia, failed conservative treatment Procedure: Laparoscopically assisted vaginal hysterectomy, bilateral salpingectomy, cystoscopy Surgeon: Dr. Gauri Maki DO Body Service Team Member: SAURAV Villar EBL:140cc Urine output:200cc Anesthesia: general endotracheal intubation Patient received preoperative antibiotics and SCDs were on preoperatively. Patient was taken back to the operating room and placed in the dorsal lithotomy position. General anesthesia was induced and patient was prepped and draped in normal sterile fashion. Uterine manipulator was placed inside the uterus and Webster catheter placed in the bladder. The umbilicus was grasped with towel clamps and an intraumbilical incision was made after injecting with quarter percent Marcaine and a 5 mm trocar was placed under direct visualization without complication into the abdomen. CO2 gas was used to inflate the abdomen. Right and left lower quadrants were transilluminated and injected with quarter percent Marcaine and 5 mm ports placed under direct visualization. Pelvis was well visualized see operative findings for additional information. Bilateral fallopian tubes were identified and transected with the Enseal device across the mesosalpinx to the level of the utero-ovarian ligament which was also transected with the Enseal device. The broad ligament was opened up by transecting the round ligament bilaterally and skeletonizing the uterine vessels bilaterally and creating a bladder flap using the Enseal device. The uterine arteries were transected bilaterally with good visualization of the bladder and the ureters were seen to be inferior lateral to the operative area. Attention was then paid to the vaginal portion of the procedure and the cervix was grasped with Kaur clamps and circumferentially injected with 0.25% marcaine. A circumferential incision was made and the vaginal mucosa was mobilized off posteriorly and the cul-de-sac entered into sharply and a longneck speculum placed. The anterior cul-de-sac was then identified and entered into sharply. The uterosacral ligaments were clamped cut and suture ligated with 0 Monocryl bilaterally followed by the cardinal ligaments which were clamped cut and suture ligated bilaterally with 0 Monocryl. The uterus serially descended and was removed without difficulty with minimal morcellation. Pelvic sidewall pedicles were checked and noted to have excellent hemostasis. The vaginal mucosa was reapproximated incorporating the posterior peritoneum. This was reapproximated using 0 Vicryl [id number] sutures. Excellent hemostasis was noted. The cystoscopy was then performed and bilateral ureteral strong spray was noted and the bladder was noted to have no abnormality or lesions seen. Webster catheter was replaced and then attention paid to the abdominal portion of the procedure again. The pelvis and cul-de-sac was well visualized and no significant active bleeding noted but some raw areas were seen on the peritoneum and therefore Marylin was applied. Pressure was taken down and the areas visualized and noted of excellent hemostasis. All ports were removed under direct visualization without complication and the abdomen was desufflated of air. The instruments removed from the abdomen and the vagina vaginal sweep was negative. Port sites on the abdomen were closed with 4-0 Monocryl interrupted sutures and Steri's and windows were applied. She was awoken and taken recovery in stable condition. Multi Select Codes Urinary/Genital Urinary/Genital CPT Codes: 38847 Cystoscopy and 22845 LAVH+BS/O <250gr Uterus
--- NOTE | 2022-11-22 09:37 | DCINST_ITS ---
Discharge Instructions Diet Discharge Diet: No restrictions Activity May resume sexual activity in: 6 weeks Weight Bearing Status: Full weight bearing Dressing / Incision Call your doctor if your incision/area has: Continuous Slow Oozing, Sudden Increased Bleeding, Increased Pain/ Swelling, Increased Redness and Foul Smelling Discharge Call your doctor if you observe: Fever of 101 or Higher, Using more than 1 pad per hour, Shortness of breath, Chest pain and Uncontrolled pain Suture Line Care: Avoid Pulling/Pushing and Avoid Pinching/Bending Remove Dressing in: 1 week (if present) Cleanse incision/area with: Soap & Water and Keep Dressing Clean & Dry Follow Up Care Please Follow Up With: Paige Maki DO When: Call to make an appointment with your doctor for a postop visit in 2 and 6 weeks Test Results: Test results from this visit will be discussed in further detail at your follow- up appointment, if applicable. Discharge Plan Admission Primary Reason for Your Visit: hysterectomy Attending Provider: Paige Maki Primary Care Provider: Breanne Centeno Discharge Orders/Prescriptions Prescriptions: New oxycodone-acetaminophen [Percocet] 5-325 mg tablet 1 tab PO Q4H PRN (Reason: pain) 7 Days Qty: 30 0RF Rx Instructions: 1-2 tabs q 4 hrs as needed for pain naproxen 500 mg tablet 500 mg PO BID PRN (Reason: pain) Qty: 30 0RF ondansetron HCl 4 mg tablet 8 mg PO TID PRN (Reason: nausea and vomiting) Qty: 14 0RF Continued duloxetine [Cymbalta] 30 mg capsule,delayed release(DR/EC) 20 mg PO DAILY fluticasone propionate [Flonase Allergy Relief] 50 mcg/actuation spray,suspension 1 spray intranasal BID PRN (Reason: ALLERGIES) Rx Instructions: administer into each nostril cetirizine [Zyrtec] 10 mg tablet 10 mg PO DAILY alprazolam 0.25 MG tablet 0.25 mg PO PRN PRN (Reason: Anxiety) multivitamin Tablet 1 tab PO DAILY cyanocobalamin (vitamin B-12) [Vitamin B-12] 100 mcg Tablet 200 mcg PO DAILY albuterol sulfate 90 mcg/actuation HFA aerosol inhaler 2 puff INHALATION PRN PRN (Reason: ASTHMA) Label Comments: 2 (TWO) PUFF EVERY 6 HOURS NEEDED 15MINS PRIOR TO EXERCISE Referrals / Follow Up: Breanne Centeno DO [Primary Care Provider] - Disposition Disposition (needs filled in before D/C Order can be placed): Home, Self Care
[2022-11-22] MEDS: Lactated Ringers 1,000 ML 100 ML IV (10:57)
[2022-11-22] MEDS: HYDROcodone Bitartrate/Apap 5/325 Tablet PO (13:51)
== END 2022-11-22 14:15 | disposition home or self-care (01) ==
LOC: SDC 05:27 → AC 05:29
PROVIDERS: Anesthesiology; PCP Internal Medicine; Referring Provider Obstetrics & Gynecology; Visit Provider Obstetrics & Gynecology
PROC: 0UT9FZZ Resection of Uterus, Via Natural or Artificial Opening With Percutaneous Endoscopic Assistance (ICD-10-PCS; CPT 58552; principal; 2022-11-22 07:05)
DX: D25.1 Intramural leiomyoma of uterus (principal); D25.2 Subserosal leiomyoma of uterus; N83.8 Other noninflammatory disorders of ovary, fallopian tube and broad ligament; N92.0 Excessive and frequent menstruation with regular cycle; N87.9 Dysplasia of cervix uteri, unspecified; J45.909 Unspecified asthma, uncomplicated; Z79.899 Other long term (current) drug therapy
CPT/HCPCS: 58552; 52000; 00840; 36415; 81025; 82962; 83735; 85027; 86850; 86900; 86901; 88307; J7120; C1760; J2405; J3475

== ENCOUNTER 2022-11-30 21:00 | Emergency (ER) | payer OTHER, SELFPAY ==
[2022-11-30 21:01] VITALS: BP 139/96; PULSE 123; RESP 16; TEMP 36.6; O2SAT 98; BMI 30.9
--- NOTE | 2022-11-30 21:55 | EX.ED.DYSGE1 ---
HPI History of Present Illness Chief Complaint: Palpitations Narrative Narrative: 42-year-old female presenting with tachycardia. She states she is status post hysterectomy by Dr. Plata on 11/22/2022. She states that today was the first day she started to feel well. She reports lots of activity. She noted that earlier in the day her heart rate started racing. She states she does have a history of anxiety but does not feel anxious. She took a Xanax and then her heart rate never slowed down so she took another 1. She states I never take these.. She states that typically she does not have to use them and ends up with extra. She reports that she is not taking her narcotic pain medicine after her surgery and she stopped these 2 days after the surgery. She states she initially felt like she had some constipation and that is why she stopped them. She currently has no abdominal pain. Patient states that she did have some initial vaginal bleeding when she was discharged home from her surgery but has not any spotting this week. [facility] Medical History Alcohol use Asthma Back pain Migraine headache Shortness of breath on exertion Wears dentures Wears glasses Home Medications alprazolam 0.25 mg tablet 0.25 mg PO PRN PRN Anxiety 08/07/19 [History Last Taken Unknown] cetirizine 10 mg tablet (Zyrtec) 10 mg PO DAILY 11/05/21 [History Last Taken Unknown] duloxetine 30 mg capsule,delayed release (Cymbalta) 20 mg PO DAILY 11/05/21 [History Last Taken Unknown] fluticasone propionate 50 mcg/actuation nasal spray,suspension (Flonase Allergy Relief) 1 spray intranasal BID PRN ALLERGIES 11/05/21 [History Last Taken Unknown] albuterol sulfate 90 mcg/actuation aerosol inhaler 2 puff inhalation PRN PRN ASTHMA 11/08/22 [History Last Taken Unknown] multivitamin 1 tab PO DAILY 11/08/22 [History Last Taken Unknown] Allergy/AdvReac Type Severity Reaction Status Date / Time oxycodone Allergy Itching Verified 11/30/22 21:03 Family History Mother Breast cancer Grandmother Diabetes Grandfather Diabetes Surgical History Hx of dilation and curettage S/P endometrial ablation Social History Smoking Status: Never smoker alcohol intake: current details: occasionally substance use type: does not use caffeine: Yes what type of physical activity do you participate in: none seatbelt use: always do you feel safe at home: Yes additional social history: - Nathaniel Works at [employer] ED Constitutional Constitutional ED: Denies chills or fever(s) Eyes Eyes: Denies change in vision or diplopia ENT ENT ED: Denies rhinorrhea or sore throat Cardiovascular Cardiovascular: Reports palpitations and racing heartbeat; Denies chest pain Respiratory/Chest Respiratory/Chest: Denies cough or dyspnea Gastrointestinal Gastrointestinal: Reports abdominal pain and constipation; Denies nausea or vomiting Genitourinary Genitourinary ED: Denies dysuria or hematuria Musculoskeletal Musculoskeletal: Denies arthralgias Integumentary Denies abscess Neurologic Neurologic: Denies headache(s) or paresthesias Psychiatric Psychiatric: Denies anxiety or depression EXAM Physical Exam Const Vital Signs: 11/30/22 21:01 11/30/22 21:23 11/30/22 22:16 Temperature 97.8 F Temperature Source Temporal Pulse Rate 123 H Respiratory Rate 16 Respiratory Effort Normal Respiratory Pattern Normal Blood Pressure 139/96 H Blood Pressure Mean 110 Pulse Ox 98 Oxygen Delivery Method Room Air Room Air 11/30/22 23:00 11/30/22 23:08 11/30/22 23:08 Temperature Temperature Source Pulse Rate 102 H 84 Respiratory Rate 14 Respiratory Effort Respiratory Pattern Blood Pressure Blood Pressure Mean Pulse Ox 97 Oxygen Delivery Method Room Air Room Air Positive well nourished General Appearance ED: NAD; Negative for pallor HEENT Reports moist mucous membranes Negative for trauma or tenderness Eyes PERRL and EOMs intact bilaterally General Eye ED: Negative for scleral icterus Resp normal respiratory effort Auscultation: Negative for rales, rhonchi or wheezes Cardio regular rhythm Rate: tachycardic GI normal to inspection, nondistended, normoactive bowel sounds, non-tender, non-distended and no masses Palpation: soft Neuro oriented x3 and CN's II-XII intact bilaterally Sensorium / Orientation: alert Psych mental status grossly normal Skin no rashes or lesions noted and no wounds General Skin Exam: elasticity normal; Negative for jaundice or pallor MDM MDM MDM Narrative Medical decision making narrative: Patient presenting with tachycardia. She denies having any chest pain. She is not sure why she is tachycardic. She does have a history of anxiety but she states he has not been anxious. She took 2 Xanax prior to coming into heart Fabio elevated. Patient also states that she had recent hysterectomy and was having some left-sided abdominal pain which had resolved. She denies black or bloody stools. She denies vaginal bleeding. Patient treated with IV fluids. Differential diagnosis at this point includes but is not limited to dehydration, acute blood loss anemia, anxiety, ACS, PE, pneumonia. I will check a CBC to check for white blood cell count, hemoglobin, platelets, differential. BMP to assess for dehydration, electrolytes, glucose, anion gap. High-sensitivity troponin given her tachycardia. . High-sensitivity troponin was 3 after pain all day believe she is a second troponin.Given that she had recent surgery as well I did obtain a D-dimer which was elevated. CTA of the chest which was negative. EKG sinus tachycardia ventricular rate of 116 bpm without sign of ischemic change or dysrhythmia. Chest x-ray shows no acute process on my interpretation. Radiologist report disagrees. CBC shows a slight leukocytosis at 15.8. Patient does not have any abdominal pain to suggest a postoperative infection. Her CTA is negative for pulmonary sources. Patient is not having urinary symptoms. At this point after getting IV fluids her heart rate is slowed down to 84 bpm. I feel this time the patient is stable for discharge home. Patient minimal to plan. Impression: 1. Tachycardia 2. History of anxiety 3. Recent hysterectomy Lab Data Labs: Laboratory Results - last 24 hr 11/30/22 11/30/22 11/30/22 22:30 22:30 22:30 WBC Cancelled Corrected WBC Cancelled RBC Cancelled Hgb Cancelled Hct Cancelled MCV Cancelled MCH Cancelled MCHC Cancelled RDW Std Deviation Cancelled RDW Coeff of [place] Cancelled Plt Count Cancelled MPV Cancelled Immature Gran % (Auto) Cancelled Neut % (Auto) Cancelled Lymph % (Auto) Cancelled [place] % (Auto) Cancelled Eos % (Auto) Cancelled Baso % (Auto) Cancelled Absolute Neuts (auto) Cancelled Absolute Lymphs (auto) Cancelled Total Counted Cancelled Neutrophils % (Manual) Cancelled Band Neutrophils % Cancelled Lymphocytes % (Manual) Cancelled Monocytes % (Manual) Cancelled Eosinophils % (Manual) Cancelled Basophils % (Manual) Cancelled Metamyelocytes % Cancelled Myelocytes % Cancelled Promyelocytes % Cancelled Blast Cells % Cancelled Plasma Cell % (Manual) Cancelled Other Cells % Cancelled Nucleated RBC % Cancelled Nucleated RBCs/100 WBC Cancelled Differential Comment Cancelled Diff Path Review Cancelled Hypersegmented Neuts Cancelled Atypical Lymphocytes Cancelled Reactive Lymphocytes Cancelled Smudge Cells Cancelled Toxic Granulation Cancelled Toxic Vacuolation Cancelled Dohle Bodies Cancelled Yrn Rods Cancelled Platelet Estimate Cancelled Plt Morphology Comment Cancelled RBC Morphology Cancelled Polychromasia Cancelled Hypochromasia Cancelled Poikilocytosis Cancelled Basophilic Stippling Cancelled Anisocytosis Cancelled Microcytosis Cancelled Macrocytosis Cancelled Spherocytes Cancelled Sickle Cells Cancelled Target Cells Cancelled Tear Drop Cells Cancelled Ovalocytes Cancelled Stomatocytes Cancelled [place] Bodies Cancelled [place] Cells Cancelled Bite Cells Cancelled Crenated Cell Cancelled Acanthocytes (Spur) Cancelled Rouleaux Cancelled Schistocytes Cancelled D-Dimer Quant (PE/DVT) 0.67 H* Sodium 139 Potassium 3.8 Chloride 110 H Carbon Dioxide 21.0 Anion Gap 8 BUN 15 Creatinine 0.74 Estim Creat Clear Calc 77.53 Est GFR (MDRD) Af Amer 110 Est GFR (MDRD) Non-Af 91 BUN/Creatinine Ratio 20.2 H Glucose 109 H Calcium 9.6 Troponin I High Sens 3 11/30/22 22:54 WBC 15.8 H Corrected WBC RBC 4.57 Hgb 12.5 Hct 38.7 MCV 84.7 MCH 27.4 MCHC 32.3 RDW Std Deviation 40.1 RDW Coeff of [place] 13.1 Plt Count 347 MPV 9.0 Immature Gran % (Auto) 0.400 Neut % (Auto) 64.0 Lymph % (Auto) 27.0 [place] % (Auto) 6.1 Eos % (Auto) 2.1 Baso % (Auto) 0.4 Absolute Neuts (auto) 10.1 H Absolute Lymphs (auto) 4.27 Total Counted Neutrophils % (Manual) Band Neutrophils % Lymphocytes % (Manual) Monocytes % (Manual) Eosinophils % (Manual) Basophils % (Manual) Metamyelocytes % Myelocytes % Promyelocytes % Blast Cells % Plasma Cell % (Manual) Other Cells % Nucleated RBC % 0 Nucleated RBCs/100 WBC Differential Comment Diff Path Review Hypersegmented Neuts Atypical Lymphocytes Reactive Lymphocytes Smudge Cells Toxic Granulation Toxic Vacuolation Dohle Bodies Yrn Rods Platelet Estimate Plt Morphology Comment RBC Morphology Polychromasia Hypochromasia Poikilocytosis Basophilic Stippling Anisocytosis Microcytosis Macrocytosis Spherocytes Sickle Cells Target Cells Tear Drop Cells Ovalocytes Stomatocytes [place] Bodies [place] Cells Bite Cells Crenated Cell Acanthocytes (Spur) Rouleaux Schistocytes D-Dimer Quant (PE/DVT) Sodium Potassium Chloride Carbon Dioxide Anion Gap BUN Creatinine Estim Creat Clear Calc Est GFR (MDRD) Af Amer Est GFR (MDRD) Non-Af BUN/Creatinine Ratio Glucose Calcium Troponin I High Sens Radiography Diagnostic Testing: Clinical Impression(s) from Imaging Studies Chest X-Ray 11/30/22 22:30 IMPRESSION: No acute cardiopulmonary disease. Electronically Signed: Hasnel Coleman MD at 23:10 EST , Chest CTA 11/30/22 22:59 IMPRESSION: Normal CTA chest examination, without a demonstrated pulmonary embolism or arterial dissection. Old granulomatous disease. Electronically Signed: Hansel Coleman MD at 23:55 EST , Discharge Plan Triage Chief Complaint: Palpitations ED Provider: Kyree Helms Dx/Rx/DC Orders Prescriptions: No Action duloxetine [Cymbalta] 30 mg capsule,delayed release(DR/EC) 20 mg PO DAILY fluticasone propionate [Flonase Allergy Relief] 50 mcg/actuation spray,suspension 1 spray intranasal BID PRN (Reason: ALLERGIES) Rx Instructions: administer into each nostril cetirizine [Zyrtec] 10 mg tablet 10 mg PO DAILY alprazolam 0.25 MG tablet 0.25 mg PO PRN PRN (Reason: Anxiety) multivitamin Tablet 1 tab PO DAILY albuterol sulfate 90 mcg/actuation HFA aerosol inhaler 2 puff INHALATION PRN PRN (Reason: ASTHMA) Label Comments: 2 (TWO) PUFF EVERY 6 HOURS NEEDED 15MINS PRIOR TO EXERCISE Primary Care Provider: Breanne Centeno Referrals: Breanne Centeno DO [Primary Care Provider] -
--- NOTE | 2022-11-30 22:30 | RAD_ITS ---
STUDY: X-RAY CHEST REASON FOR EXAM: Female, 42 years old. Chest pain TECHNIQUE: Single AP portable view of the chest. COMPARISON: None. FINDINGS: There are monitoring devices. The lungs are clear and expanded. There is calcified left lower lung granuloma. There is no demonstrated pleural abnormality. Normal size heart. Normal mediastinum and deidra. Normal visualized pulmonary arteries. Normal visualized aortic arch and descending thoracic aorta. Normal visualized thoracic spine. Normal visualized ribs, clavicles, and shoulders. There is no demonstrated abnormality of the visualized soft tissue structures of the upper abdomen. RAD/Chest 1 View (Portable) IMPRESSION: No acute cardiopulmonary disease. Electronically Signed: Hansel Coleman MD at 23:10 EST ,
[2022-11-30 22:56] LABS: D-Dimer Quantitative (DVT/PE) 0.67 FEU/ug/m (0.27-0.49)
--- NOTE | 2022-11-30 22:59 | CT_ITS ---
STUDY: CTA CHEST REASON FOR EXAM: Female, 42 years old. Palpitations RADIATION DOSAGE (If Supplied By Facility): CTDIvol = ( 11.81 ) mGy, DLP = ( 480.94 ) mGycm TECHNIQUE: The examination was performed with the intravenous administration of IV 100mL Isovue-370. Post-processing of the angiographic images was performed, with multiplanar reformation and 3D reconstruction. Individualized dose optimization techniques were used for this CT. COMPARISON: Chest x-ray FINDINGS: Normal enhancement of the main pulmonary artery and right and left pulmonary arteries. Normal enhancement of the bilateral peripheral pulmonary arteries. There is no demonstrated pulmonary embolism. Normal thoracic aorta and visualized great vessels. There is no demonstrated aortic dissection. Normal heart and pericardium. There are calcified mediastinal lymph nodes. There are calcified bilateral hilar lymph nodes. Normal visualized trachea and bronchi. The lungs are well expanded. There is no focal infiltrate. There is calcified right upper and bilateral lower lung granulomas. Normal pleura. Normal chest wall structures. Normal osseous structures. There are multiple benign calcified granulomata of the spleen. CT/CTA Chest W/WO Contrast IMPRESSION: Normal CTA chest examination, without a demonstrated pulmonary embolism or arterial dissection. Old granulomatous disease. Electronically Signed: Hansel Coleman MD at 23:55 EST ,
[2022-11-30 23:00] VITALS: PULSE 102; RESP 14; O2SAT 97
[2022-11-30 23:00] LABS: Anion Gap 8 (5-15); BUN 15 mg/dL (7-18); BUN/Creat Ratio 20.2 RATIO (10-20); Calcium,Total 9.6 mg/dL (8.5-10.1); Chloride 110 mmol/L (98-107); Creatinine, Serum 0.74 mg/dL (0.55-1.02); EST Glomerular Filtration Rate 91 mL/min (>60); Est Glom Filt Rate - Afr Amer 110 mL/min (>60); Estimated Creatinine Clearance 77.53 ml/min; Glucose 109 mg/dL (74-106); Potassium 3.8 mmol/L (3.5-5.1); Sodium Level 139 mmol/L (136-145); Troponin-I HS 3 pg/mL (3.0-54.0)
[2022-11-30 23:01] LABS: Absolute Lymphocyte Count 4.27 X10^3/uL (0.83-4.51); Absolute Neutrophil Count 10.1 X10^3/uL (2.0-7.7); Basophil# 0.06 X10^3/uL; Basophil% 0.4 % (0-1); Eosinophil# 0.34 X10^3/uL; Eosinophils% 2.1 % (0-5); Hematocrit 38.7 % (37-47); Hemoglobin 12.5 g/dL (12.0-15.0); Lymphocyte # 4.27 X10^3/ul (0.83-4.51); Mean Corp Hgb Conc 32.3 g/dL (32-36); Mean Corpuscular Hgb 27.4 pg (27.0-32.0); Mean Corpuscular Volume 84.7 fL (81-99); Monocyte# 0.97 X10^3/uL; Monocyte% 6.1 % (0-10); NRBC Flagged by Analyzer 0 % (0-5); Neutrophil # 10.12 X10^3/uL (2.7-7.7); Platelet Count 347 K/mm3 (150-450); RBC Distribution Width CV 13.1 % (11.6-14.6); RBC Distribution Width SD 40.1 fl (35.1-43.9); Red Blood Count 4.57 M/mm3 (4.2-5.4); White Blood Count 15.8 K/mm3 (4.4-11.0)
[2022-11-30] MEDS: 0.9% Normal Saline 1,000 ML 1000 ML IV (23:02)
[2022-11-30 23:08] VITALS: PULSE 84
== END 2022-12-01 00:57 | disposition home or self-care (01) ==
PROVIDERS: Emergency Provider Student in an Organized Health Care Education/Training Program; PCP Internal Medicine; Visit Provider Student in an Organized Health Care Education/Training Program
DX: R00.0 Tachycardia, unspecified (principal); J45.909 Unspecified asthma, uncomplicated; Z79.899 Other long term (current) drug therapy
CPT/HCPCS: 71045; 71275; 80048; 84484; 85025; 85379; 93005; 96360; 96361; 99283; J7030; Q9967; A4216

== ENCOUNTER → 2023-05-10 | Outpatient (CLI) | payer OTHER, SELFPAY ==
[2023-05-10 18:01] LABS: Vitamin B12 496 pg/mL (211-911); Vitamin D,25 Hydroxy 39.7 ng/mL
[2023-05-10 18:13] LABS: AST(SGOT) 16 U/L (15-37); Alanine Aminotransfer ALT/SGPT 25 U/L (13-56); Alkaline Phosphatase 100 U/L (45-117); Anion Gap 7 (5-15); BUN 11 mg/dL (7-18); BUN/Creat Ratio 17.3 RATIO (10-20); Calcium,Total 9.1 mg/dL (8.5-10.1); Chloride 105 mmol/L (98-107); Creatinine, Serum 0.64 mg/dL (0.55-1.02); EST Glomerular Filtration Rate 108 mL/min (>60); Est Glom Filt Rate - Afr Amer 131 mL/min (>60); Estradiol 58.8 pg/mL; Follicle Stimulating Hormone 5.1 mIU/mL; Free T3 2.8 pg/mL (2.18-3.98); Globulin 4.1 g/dL (2.2-4.2); Glucose 80 mg/dL (74-106); Potassium 3.7 mmol/L (3.5-5.1); Protein, Total 8.1 g/dL (6.4-8.2); Sodium Level 136 mmol/L (136-145); T4 Free Direct 1.12 ng/dL (0.76-1.46); Thyroid Stim Hormone (TSH) 0.73 uIU/mL (0.358-3.74)
[2023-05-12 04:07] LABS: Thyroid Peroxidase AB < 9 IU/mL (0-34)
== END | disposition home or self-care (01) ==
PROVIDERS: PCP Internal Medicine; Referring Provider Family Medicine; Visit Provider Family Medicine
DX: E34.9 Endocrine disorder, unspecified (principal)
CPT/HCPCS: 36415; 80053; 82306; 82607; 82670; 83001; 84403; 84439; 84443; 84481; 86376

== ENCOUNTER → 2023-05-11 | Outpatient (CLI) | payer OTHER, SELFPAY ==
[2023-05-11 17:35] LABS: Hematocrit 44.1 % (37-47); Hemoglobin 13.7 g/dL (12.0-15.0); Mean Corp Hgb Conc 31.1 g/dL (32-36); Mean Corpuscular Hgb 26.8 pg (27.0-32.0); Mean Corpuscular Volume 86.1 fL (81-99); Mean Platelet Vol. 9.3 fl (6.2-12.0); Platelet Count 337 K/mm3 (150-450); RBC Distribution Width SD 40.5 fl (35.1-43.9); Red Blood Count 5.12 M/mm3 (4.2-5.4); White Blood Count 12.1 K/mm3 (4.4-11.0)
== END | disposition home or self-care (01) ==
LOC: MTLAB 14:56
PROVIDERS: PCP Internal Medicine; Visit Provider Family Medicine
DX: E34.9 Endocrine disorder, unspecified (principal)
CPT/HCPCS: 85027

== ENCOUNTER → 2023-06-13 | Outpatient (CLI) | payer OTHER, SELFPAY ==
[2023-06-13 18:27] LABS: Estradiol 48.8 pg/mL; Follicle Stimulating Hormone 4.8 mIU/mL
== END | disposition home or self-care (01) ==
LOC: MTLAB 14:24
PROVIDERS: PCP Internal Medicine; Referring Provider Family Medicine; Visit Provider Family Medicine
DX: E34.9 Endocrine disorder, unspecified (principal)
CPT/HCPCS: 36415; 82670; 83001; 84403

== ENCOUNTER → 2023-08-02 | Outpatient (CLI) | payer OTHER, SELFPAY ==
[2023-08-02 10:56] LABS: Insulin 13.7 mU/L (2.6-37.6); Vitamin B12 1176 pg/mL (211-911); Vitamin D,25 Hydroxy 59.5 ng/mL
[2023-08-02 11:08] LABS: Cholesterol 151 mg/dL (200); Estradiol 54.5 pg/mL; Free T3 3.4 pg/mL (2.18-3.98); High Density Lipoprotein 57 mg/dL; T4 Free Direct 0.89 ng/dL (0.76-1.46); Thyroid Stim Hormone (TSH) 0.78 uIU/mL (0.358-3.74); Triglycerides 80 mg/dL; Very Low Density Lipoprotein 16 mg/dL (5-40)
[2023-08-02 11:18] LABS: Hemoglobin A1c 5.5 % (3.8-5.6)
== END | disposition home or self-care (01) ==
LOC: MTLAB 08:05
PROVIDERS: PCP Internal Medicine; Referring Provider Family Medicine; Visit Provider Family Medicine
DX: E34.9 Endocrine disorder, unspecified (principal); R53.83 Other fatigue
CPT/HCPCS: 36415; 80061; 82306; 82607; 82670; 83036; 83525; 84403; 84439; 84443; 84481

== ENCOUNTER → 2024-01-02 | Outpatient (CLI) | payer OTHER, SELFPAY ==
--- NOTE | 2024-01-02 14:33 | ECHOD_ITS ---
Reason For Study: HTN Procedure This was a 2D Doppler, Color Flow transthoracic echocardiogram. Exam performed in department. Left Ventricle Normal LV size. Left ventricular systolic function is normal. The estimated ejection fraction is 65 %. Normal diastology for age. No regional wall motion abnormalities noted. Right Ventricle Normal RV size. Normal systolic function. Atria Normal left atrium. Normal right atrium. Mitral Valve Normal mitral valve. Tricuspid Valve Normal tricuspid valve. Mild tricuspid valve insufficiency. Pulmonary artery systolic pressure is 24 mmHg. Aortic Valve Normal aortic valve. Trisinus/trileaflet aortic valve. Pulmonic Valve The pulmonic valve is not well visualized. Great Vessels Normal aortic root. The pulmonary artery is normal size. Inferior vena cava collapse with respiration. Pericardium/Pleural No pericardial effusion. MMode/2D Measurements & Calculations LVIDd: 4.3 cm IVSd: 0.99 cm Ao root diam: 3.0 cm LVIDs: 2.8 cm LVPWd: 0.92 cm LA dimension: 3.5 cm RVDd: 3.7 cm FS: 34.1 % LAV(MOD-bp): 40.5 ml LA A4 area: 15.8 cm2 RA A4 area: 14.5 cm2 LAV(MOD-bp) Indexed: 22.2 ml/m2 LAV(MOD-sp2): 34.4 ml LAV(MOD-sp4): 36.9 ml TAPSE: 1.8 cm Time Measurements MV dec time: 0.18 sec Doppler Measurements & Calculations MV E max rodriguez: 89.7 cm/sec Lat Peak E' Rodriguez: 16.4 cm/sec Med Peak E' Rodriguez: 9.0 cm/sec MV A max rodriguez: 77.4 cm/sec E/E' lat: 5.5 E/E' med: 10.0 MV E/A: 1.2 MV V2 max: 114.3 cm/sec MV P1/2t max rodriguez: 114.3 cm/sec Ao V2 max: 138.7 cm/sec MV max P.2 mmHg MV P1/2t: 72.4 msec Ao max P.7 mmHg MV V2 mean: 59.4 cm/sec Ao V2 mean: 96.3 cm/sec MV mean P.7 mmHg MV dec slope: 462.4 cm/sec2 Ao mean P.3 mmHg MV V2 VTI: 35.8 cm MVA(P1/2t): 3.0 cm2 Ao V2 VTI: 30.9 cm AV (velocity ratio): 0.85 LV V1 max: 117.6 cm/sec MR max rodriguez: 439.2 cm/sec PA V2 max: 90.0 cm/sec LV V1 max P.5 mmHg MR max P.2 mmHg PA V2 mean: 67.1 cm/sec LV V1 mean P.1 mmHg LV V1 mean: 82.7 cm/sec LV V1 VTI: 26.4 cm TR max rodriguez: 216.7 cm/sec TR max P.8 mmHg ECHO/Echo Complete Interpretation Summary Normal LV size. Left ventricular systolic function is normal. The estimated ejection fraction is 65 %. Normal diastology for age. Ordering Physician: Mik Hernandez Referring Physician: Breanne Centeno M.D. Performed By: Chaitanya Hooper RCS
== END | disposition home or self-care (01) ==
LOC: CVS 14:32
PROVIDERS: PCP Internal Medicine; Referring Provider Internal Medicine Cardiovascular Disease; Visit Provider Internal Medicine Cardiovascular Disease
DX: I10 Essential (primary) hypertension (principal); R00.2 Palpitations; R06.02 Shortness of breath
CPT/HCPCS: 93306

== ENCOUNTER → 2024-01-22 | Outpatient (CLI) | payer OTHER, SELFPAY ==
--- NOTE | 2024-01-22 12:10 | BI_ITS ---
MAMMOGRAPHY - BILATERAL SCREENING REASON FOR EXAM: Female, 44 years old. Routine annual screening examination. PERTINENT HISTORY: Mother with breast cancer. TECHNIQUE: Digital bilateral breast cha (3D mammographic acquisition) in the CC and MLO projections. 2-D mediolateral oblique (MLO) and craniocaudad (CC) views of both breasts were obtained. CAD: Full Field Digital Mammography with Computer Added Detection was performed. COMPARISON: Comparison is made with prior study dated November 18, 2022 and November 11, 2021. FINDINGS: Breast Composition: The breasts are heterogeneously dense, which may obscure small masses. There are no dominant masses or suspicious calcifications. Stable asymmetry of breast tissue with more breast tissue is seen in the upper outer quadrant of the right breast as compared to the left side. There is a partially calcified nodule measuring 1 cm x 0.9 cm in the deep upper lateral aspect of the left breast. Correlation with ultrasound is recommended. No other significant abnormalities are identified. BI/SCRN MAMM (CAD)W/CHA BILAT IMPRESSION: 1 cm x 0.9 cm partially calcified nodule in the deep upper lateral aspect of the left breast. Correlation with ultrasound is recommended. ASSESSMENT CATEGORY: BIRADS Category 0: Incomplete. Need additional imaging evaluation. A letter regarding these results will be sent to the patient by the facility within 30 days. Approximately 10% of breast cancers are not detected by mammography. A normal mammogram should not delay biopsy of a clinically suspicious abnormality. [id number] Electronically Signed: Ralph Baez MD at 13:21 EDT ,
== END | disposition home or self-care (01) ==
LOC: OPBI 12:10
PROVIDERS: PCP Internal Medicine; Referring Provider Obstetrics & Gynecology; Visit Provider Obstetrics & Gynecology
DX: Z12.31 Encounter for screening mammogram for malignant neoplasm of breast (principal)
CPT/HCPCS: 77063; 77067

== ENCOUNTER → 2024-01-25 | Outpatient (CLI) | payer OTHER, SELFPAY ==
--- NOTE | 2024-01-25 10:59 | US_ITS ---
STUDY: ULTRASOUND BREAST - LEFT REASON FOR EXAM: Female, 44 years old. Abnormal screening mammogram. TECHNIQUE: Axial and longitudinal images of the LEFT breast were performed with a high resolution ultrasound transducer. # OF IMAGES: 25 COMPARISON: Comparison is made with prior mammogram dated January 22, 2024. FINDINGS: LEFT Breast: The mammographic abnormality corresponds to a 1.2 cm x 1.1 cm x 0.7 cm cyst at the 2:00 position of the breast at 8 cm from nipple. US/Breast Limited Unilateral IMPRESSION: The mammographic abnormality corresponds to a 1.2 cm x 1.1 cm x 0.7 cm cyst at the 2:00 position of the breast at 8 cm from the nipple. ASSESSMENT CATEGORY: BIRADS Category 2: Benign. A letter regarding these results will be sent to the patient by the facility within 30 days. Electronically Signed: Ralph Baez MD at 10:17 EDT ,
== END | disposition home or self-care (01) ==
LOC: OPUS 10:58
PROVIDERS: PCP Internal Medicine; Visit Provider Obstetrics & Gynecology
DX: N63.20 Unspecified lump in the left breast, unspecified quadrant (principal)
CPT/HCPCS: 76642

== ENCOUNTER → 2024-02-01 | Outpatient (CLI) | payer OTHER, SELFPAY ==
[2024-02-01 09:56] LABS: Absolute Lymphocyte Count 3.34 X10^3/uL (0.83-4.51); Basophil# 0.07 X10^3/uL; Basophil% 0.6 % (0-1); Eosinophil# 0.26 X10^3/uL; Eosinophils% 2.3 % (0-5); Hematocrit 44.8 % (37-47); Hemoglobin 14.2 g/dL (12.0-15.0); Lymphocyte # 3.34 X10^3/ul (0.83-4.51); Lymphocyte % 29.3 % (19-41); Mean Corp Hgb Conc 31.7 g/dL (32-36); Mean Corpuscular Volume 82.1 fL (81-99); Mean Platelet Vol. 9.3 fl (6.2-12.0); Monocyte# 0.67 X10^3/uL; Monocyte% 5.9 % (0-10); NRBC Flagged by Analyzer 0 % (0-5); Neutrophil # 7.02 X10^3/uL (2.7-7.7); Neutrophil % 61.6 % (47-70); Platelet Count 329 K/mm3 (150-450); RBC Distribution Width CV 13.4 % (11.6-14.6); RBC Distribution Width SD 39.3 fl (35.1-43.9); Red Blood Count 5.46 M/mm3 (4.2-5.4); White Blood Count 11.4 K/mm3 (4.4-11.0)
[2024-02-01 10:29] LABS: Anion Gap 5 (5-15); BUN 16 mg/dL (7-18); BUN/Creat Ratio 23.3 RATIO (10-20); Calcium,Total 9.1 mg/dL (8.5-10.1); Chloride 107 mmol/L (98-107); Cholesterol 156 mg/dL (200); Creatinine, Serum 0.69 mg/dL (0.55-1.02); EST Glomerular Filtration Rate 98 mL/min (>60); Est Glom Filt Rate - Afr Amer 119 mL/min (>60); Glucose 112 mg/dL (74-106); High Density Lipoprotein 51 mg/dL; Magnesium 2.1 mg/dL (1.6-2.6); Potassium 3.9 mmol/L (3.5-5.1); Sodium Level 137 mmol/L (136-145); Thyroid Stim Hormone (TSH) 1.21 uIU/mL (0.358-3.74); Triglycerides 111 mg/dL; Very Low Density Lipoprotein 22 mg/dL (5-40)
== END | disposition home or self-care (01) ==
LOC: MTLAB 08:28
PROVIDERS: PCP Internal Medicine; Referring Provider Internal Medicine; Visit Provider Internal Medicine
DX: Z13.220 Encounter for screening for lipoid disorders (principal); R00.0 Tachycardia, unspecified; E87.6 Hypokalemia; F32.A Depression, unspecified
CPT/HCPCS: 36415; 80048; 80061; 83735; 84443; 85025

== ENCOUNTER → 2025-02-07 | Outpatient (CLI) | payer OTHER, SELFPAY ==
--- NOTE | 2025-02-07 10:25 | BI_ITS ---
EXAM: SCRN MAMM (CAD)W/CHA BILAT 02/07/2025 CLINICAL HISTORY: F, Age 45 y/o , SCREENING FOR MALIGNANT NEOPLASM OF THE BREAST TECHNIQUE: Bilateral screening digital breast tomosynthesis with 2D and 3D images. Computer aided detection. COMPARISON: Prior exam(s) dated 01/22/2024, 11/18/2022, 11/11/2021. FINDINGS: TISSUE DENSITY: The breast tissue is composed of scattered area of fibroglandular density. Bilateral Breast Mammographic Findings: No significant masses, calcifications or other abnormalities are identified. BI/SCRN MAMM (CAD)W/CHA BILAT IMPRESSION: Right Breast: BIRADS 1 NEGATIVE. Left Breast: BIRADS 1 NEGATIVE. OVERALL FINAL ASSESSMENT: BIRADS 1 NEGATIVE. RECOMMENDATION: Routine annual follow-up in 1 Year A letter with findings and recommendations will be mailed to the patient. Reading Location: [id number]
== END | disposition home or self-care (01) ==
LOC: OPBI 10:23
PROVIDERS: PCP Internal Medicine; Referring Provider Obstetrics & Gynecology; Visit Provider Obstetrics & Gynecology
DX: Z12.31 Encounter for screening mammogram for malignant neoplasm of breast (principal)
CPT/HCPCS: 77063; 77067